=== PATIENT | female | born 1965 | race Caucasian/White ===

== ENCOUNTER → 2018-01-26 | Outpatient (CLI) | payer OTHER | END | disposition home or self-care (01) | LOC: C.PAPS 09:55 | PROVIDERS: ATTEND Obstetrics & Gynecology | DX: Z12.4 Encounter for screening for malignant neoplasm of cervix (principal) ==

== ENCOUNTER → 2018-01-26 | Outpatient (CLI) | payer OTHER | END | disposition home or self-care (01) | LOC: C.LABSPEC 17:26 | PROVIDERS: ATTEND Obstetrics & Gynecology | DX: B37.3 Candidiasis of vulva and vagina (principal) ==

== ENCOUNTER 2024-04-27 14:19 | Observation (INO) ==
--- NOTE | 2024-04-27 14:24 | ED Triage Note ---
Date of Service April 27, 2024 Provider in Triage Author: Earl Alvarado History of Present Illness This patient was briefly evaluated while in triage. An abbreviated physical exam was performed. This patient is a 58-year-old Female who presents to the ED for evaluation [facility]-was there for standing appointment for LEFT foot injury to RIGHT foot-stepped on a nail on the threshold of her floor Friday night skin injury, RIGHT foot pain, swelling, concern for infection Physical Exam GENERAL: Morbidly obese in wheelchair CARDIOVASCULAR: RRR RESPIRATORY: CTA EXT: unable to visualize RLE, dressed in triage. Initial orders for labs and / or imaging were placed and patient was placed in the waiting area until a bed is available. Please see further documentation for the full ED course.
[2024-04-27 15:19] LABS: Basophils # (auto) 0.04 K/uL (0.00-0.20); Basophils % (auto) 0.4 %; Eosinophils # (auto) 0.18 K/uL (0.00-0.50); Eosinophils % (auto) 1.7 %; Hematocrit (blood only) 45.5 % (37.0-47.0); Immature Granulocytes # (auto) 0.05 K/uL (0.01-0.20); Immature Granulocytes % (auto) 0.5 %; Lymphocytes # (auto) 1.22 K/uL (1.20-3.40); Lymphocytes % (auto) 11.2 %; Mean Corpuscular Hemoglobin 28.6 pg (25.0-34.0); Mean Corpuscular Volume 86.8 fL (80.0-100.0); Mean Platelet Volume 11.1 fL (9.4-12.4); Monocytes # (auto) 0.66 K/uL (0.11-0.59); Monocytes % (auto) 6.1 %; Neutrophils # (auto) 8.71 K/uL (1.40-6.50); Neutrophils % (auto) 80.1 %; Platelet Count 257 K/uL (130-400); RDW Coefficient of Variation 14.1 % (11.5-14.5); RDW Standard Deviation 45.1 fL (36.4-46.3); Red Blood Count 5.24 M/uL (4.20-5.40); White Blood Count 10.86 K/ul (4.8-10.8)
[2024-04-27 15:37] LABS: Alanine Aminotransferase 16 U/L (7-52); Albumin Level 3.5 gm/dl (3.4-5.0); Alkaline Phosphatase 88 U/L (34-104); Anion Gap 6 (3-11); Aspartate Aminotransferase 14 U/L (13-39); BUN Creatinine Ratio 11.5 (10-20); Bilirubin Direct 0.1 mg/dl (0-0.2); Bilirubin,Total 0.8 mg/dl (0.2-1.0); Blood Urea Nitrogen 12 mg/dl (6-23); Calcium 9.4 mg/dl (8.6-10.3); Carbon Dioxide 26 mmol/L (21-32); Chloride 103 mmol/L (98-107); Est GFR (African American) 69.1 ml/min; Est GFR (Non-African American) 59.6 ml/min; Glucose 171 mg/dl (70-99(Fasting)); Magnesium 1.5 mg/dl (1.7-2.4); Sodium 135 mmol/L (136-145)
[2024-04-27 15:52] LABS: Thyroid Stimulating Hormone 5.739 uIu/ml (0.300-4.500)
[2024-04-27] MEDS: OPTIRAY 320 125ml IV ONE (16:16)
[2024-04-27 16:27] LABS: T4 Free Thyroxine 1.04 ng/dl (0.61-1.60)
--- NOTE | 2024-04-27 16:49 | Emergency Department Note ---
Impression & Plan Cellulitis of foot, right, Diabetic foot infection, Hypomagnesemia ED Provider Note HISTORY OF PRESENT ILLNESS: Patient is a 58-year-old female presenting with right foot pain and swelling. Patient was seen at wound clinic and was referred to the emergency department due to concern for infection. Patient reports that 36 hours ago she was walking in her house when she accidentally stepped on the nail that tore off the skin on the plantar surface of her right lateral foot. Reports that she started Keflex which she had in her house from a previous history of cellulitis. She went to her doctors today and was found to have significant swelling and erythema and pain in her right foot and referred to the emergency department for further evaluation. Patient reports tetanus is up-to-date. Denies any fevers. Denies any nausea or vomiting. Denies any chest pain or shortness of breath. ROS: as above PHYSICAL EXAM: Constitutional: Patient appears in no acute distress. Morbidly obese HENT: Head: Normocephalic and atraumatic. Eyes: EOMI, PERRL Mouth/Throat: Mucous membranes moist. Neck: Trachea midline. Neck supple. Cardiovascular: Tachycardic with regular rhythm. No murmurs, rubs or gallops. Intact distal pulses. Pulmonary/Chest: No respiratory distress. Breath sounds clear and equal bilaterally. No wheezes or rales. Abdominal: Abdomen soft, no tenderness, rebound or guarding. Musculoskeletal: - RLE: Patient has an open wound to the right lateral plantar surface of the foot. It is oval in shape (7.8 cm x 6 cm) and does not have any appreciable drainage from the wound. Her entire right foot is red and swollen and hot to the touch. No palpable crepitus. Intact DP and PT pulses. Erythema is streaking up the ankle. Able to dorsiflex and plantarflex the ankle without significant pain. Skin: Warm and dry. No rash, erythema, pallor or cyanosis Psychiatric: Appropriate mood and affect for situation. Neurological: Alert and keenly responsive. CN II-XII grossly intact, moving all extremities equally and fully. MDM: - Vitals signs showed hypertension. - History obtained via patient. History as above. - Chronic conditions affecting care: DM-2; morbid obesity; hypothyroidism - Differential diagnoses include, but are not limited to: Necrotizing fasciitis; cellulitis; diabetic foot wound; soft tissue swelling - Order placed for continuous cardiac monitoring. At this time, monitor showed rate of 105 bpm with normal sinus rhythm, per my interpretation. - External medical records reviewed. Wound care visit note dated today was reviewed. Sent to ER for IV antibiotics. - Laboratory workup interpreted by myself showed leukocytosis (WBC 10.86) with left shift; slight hyponatremia (Na 135); hyperglycemia (glucose 171); hypomagnesemia (Mg 1.5); normal procalcitonin; normal lactate; elevated TSH (5.739) with normal T4 - CT right foot obtained via triage protocols showed diffuse subcutaneous edema and skin thickening representing cellulitis. No obvious osteomyelitis changes. - Patient given 50 mcg IV fentanyl for pain control. Given 1L NS and IV zosyn for antibiotic coverage. Given 1g IV magnesium for electrolyte replacement. - Discussion was had with binder caser about patient's case and need for admission - Hospitalist, Dr. Blanco, consulted for admission - Patient admitted to [facility] service for further evaluation and management. ASSESSMENT AND PLAN: Diagnosis: Diabetic foot infection; cellulitis of right foot; hypomagnesemia Plan: admit Past Med/Surg History Problem List (Updated 04/27/24 @ 19:33 by Johnna Cantrell MD) Hypomagnesemia (Acute) Diabetic foot infection (Acute) Cellulitis of foot, right (Acute) Infection of right foot Thickened endometrium Allergy to multiple antibiotics Diabetic ulcer of left heel (Acute) Open wound of heel Diabetic ulcer of left great toe (Acute) Hypothyroidism Morbid obesity with BMI of 60.0-69.9, adult Diabetic foot ulcer associated with type 2 diabetes mellitus Loss of protective sensation of skin of foot Foot deformity Obesity Diabetic peripheral neuropathy associated with type 2 diabetes mellitus Medical History History of blood transfusion Left midfoot ulcer Acquired hallux valgus of right foot Hallux valgus (acquired), left foot Bilateral swelling of feet Acquired claw toe of right foot Acquired claw toe of left foot Diabetes mellitus with diabetic polyneuropathy Callus Endometriosis CVA (cerebral vascular accident) Diabetes Surgical History History of dilatation and curettage S/P IVC filter H/O laparoscopy History of appendectomy Hx of tonsillectomy H/O tubal ligation H/O wisdom tooth extraction Family History Mother Stroke Von Willebrand disease Sister Von Willebrand disease Daughter Diabetes Autism Grandmother (Maternal) Breast cancer Grandmother (Paternal) Breast cancer Cervical cancer Social History Smoking Status: Never smoker Hx Alcohol Use: No Hx Substance Use: Yes Prescribed Medications: Marijuana Preferred Language: Mozambican Communication Ability: Effective Visual Impairment: No Limitations Hearing Ability: Normal Beliefs That Will Affect Care: None marital status: Current Living Situation: Family Feels Safe at Home: Yes Diet: regular Allergies Allergies Allergy/AdvReac Type Severity Reaction Status Date / Time adhesive tape Allergy Severe HIVES, Verified 04/27/24 11:06 SKIN PEELS OFF doxycycline Allergy Severe hives, Verified 04/27/24 11:06 nausea-vomiting erythromycin base Allergy Severe hives/sob Verified 04/27/24 11:06 Sulfa (Sulfonamide Allergy Severe hives/sob Verified 04/27/24 11:06 Antibiotics) acetaminophen Allergy Intermediate Hives Verified 04/27/24 11:06 [From Theraflu Multi-Symptom Cold] dextromethorphan Allergy Intermediate Hives Verified 04/27/24 11:06 [From Theraflu Multi-Symptom Cold] phenylephrine Allergy Intermediate Hives Verified 04/27/24 11:06 [From Theraflu Multi-Symptom Cold] celecoxib [From Celebrex] Allergy Mild Unknown Verified 04/27/24 11:06 clindamycin Allergy Mild Unknown Verified 04/27/24 11:06 Tetracyclines Allergy Mild Unknown Verified 04/27/24 11:06 Macrolide Antibiotics Allergy Unknown CAN'T Verified 04/27/24 11:06 REMEMBER ciprofloxacin [From Cipro] AdvReac Severe Gastrointestinal Verified 04/27/24 11:06 Upset/rash Home Meds Home Medications Medication Instructions Recorded Confirmed apixaban 5 mg tablet (Eliquis) 5 mg PO BID 10/29/19 04/27/24 insulin glargine 100 unit/mL 50 unit subcut QAM 04/09/22 04/27/24 subcutaneous solution (Lantus U-100 Insulin) dofetilide 500 mcg capsule 500 mcg PO BID 07/31/22 04/27/24 rosuvastatin 20 mg tablet 20 mg PO DAILY 07/31/22 04/27/24 spironolactone 25 mg tablet 25 mg PO DAILY 07/31/22 04/27/24 multivitamin 1 tab PO DAILY 12/10/22 04/27/24 insulin aspart U-100 100 unit/mL 40 - 60 unit subcut WM 12/09/23 04/27/24 subcutaneous solution levothyroxine 25 mcg capsule 100 mcg PO UD 12/09/23 04/27/24 cadexomer iodine 0.9 % topical gel 40 g topical DAILY 04/27/24 04/27/24 (Iodosorb) levothyroxine 75 mcg tablet 75 mcg PO UD 04/27/24 04/27/24 Previous Rx's Medication Instructions Recorded norethindrone acetate 5 mg tablet 5 mg PO BID #40 tabs 01/08/23 (Aygestin) Results & Data (ED) Vital Signs Vital Signs - 24 hr 04/27/24 14:22 04/27/24 15:27 04/27/24 15:27 Temperature 36.5 C Temperature Source Temporal Artery Scan Pulse Rate 90 Pulse Rate [Finger] 77 Respiratory Rate 18 20 Respiratory Effort / Characteristics Non-Labored Spontaneous Respiratory Depth Normal Respiratory Pattern Regular Blood Pressure 141/77 H Blood Pressure [Right Arm] Blood Pressure Mean 98 Blood Pressure Mean [Right Arm] Pulse Oximetry 95 97 Oxygen Delivery Method Room Air Room Air Sepsis Recent Fever Within 48 Hours No Sepsis New/Unexplained Change in Mental Status N/A Sepsis Action Taken by Nursing No Action Required 04/27/24 17:00 04/27/24 19:26 Temperature Temperature Source Pulse Rate 108 H Pulse Rate [Finger] 101 H Respiratory Rate 20 Respiratory Effort / Characteristics Respiratory Depth Respiratory Pattern Blood Pressure Blood Pressure [Right Arm] 115/85 Blood Pressure Mean Blood Pressure Mean [Right Arm] 95 Pulse Oximetry 94 Oxygen Delivery Method Room Air Sepsis Recent Fever Within 48 Hours Sepsis New/Unexplained Change in Mental Status Sepsis Action Taken by Nursing Laboratory Data 04/27/24 14:50 04/27/24 14:50 Lab Results 04/27/24 Range/Units 14:50 WBC 10.86 H (4.8-10.8) K/ul RBC 5.24 (4.20-5.40) M/uL Hgb 15.0 (12.0-16.0) g/dl Hct 45.5 (37.0-47.0) % MCV 86.8 (80.0-100.0) fL MCH 28.6 (25.0-34.0) pg MCHC 33.0 (32.0-36.0) g/dL RDW Std Deviation 45.1 (36.4-46.3) fL RDW Coeff of Benjamín 14.1 (11.5-14.5) % Plt Count 257 (130-400) K/uL MPV 11.1 (9.4-12.4) fL Immature Gran % (Auto) 0.5 % Neut % (Auto) 80.1 % Lymph % (Auto) 11.2 % [place] % (Auto) 6.1 % Eos % (Auto) 1.7 % Baso % (Auto) 0.4 % Neut # (Auto) 8.71 H (1.40-6.50) K/uL Lymph # (Auto) 1.22 (1.20-3.40) K/uL [place] # (Auto) 0.66 H (0.11-0.59) K/uL Eos # (Auto) 0.18 (0.00-0.50) K/uL Baso # (Auto) 0.04 (0.00-0.20) K/uL Immature Gran # (Auto) 0.05 (0.01-0.20) K/uL Sodium 135 L (136-145) mmol/L Potassium 4.0 (3.5-5.1) mmol/L Chloride 103 (98-107) mmol/L Carbon Dioxide 26 (21-32) mmol/L Anion Gap 6 (3-11) BUN 12 (6-23) mg/dl Creatinine 1.04 (0.6-1.2) mg/dl Est Cr Clr Drug Dosing Not Reportable Est GFR ( Amer) 69.1 ml/min Est GFR (Non-Af Amer) 59.6 ml/min BUN/Creatinine Ratio 11.5 (10-20) Glucose 171 H (70-99(Fasting)) mg/dl Lactate 1.9 (0.4-2.0) mmol/L Calcium 9.4 (8.6-10.3) mg/dl Magnesium 1.5 L (1.7-2.4) mg/dl Total Bilirubin 0.8 (0.2-1.0) mg/dl Direct Bilirubin 0.1 (0-0.2) mg/dl AST 14 (13-39) U/L ALT 16 (7-52) U/L Alkaline Phosphatase 88 (34-104) U/L Total Protein 7.0 (6.0-8.3) gm/dl Albumin 3.5 (3.4-5.0) gm/dl Procalcitonin < 0.02 (0-0.5) ng/ml TSH 5.739 H (0.300-4.500) uIu/ml Free T4 1.04 (0.61-1.60) ng/dl Administered Medications Discontinued Medications Fentanyl Citrate (Fentanyl Citrate Pf 100 Mcg/2 Ml Vial) 50 mcg IV NOW STA Stop: 04/27/24 17:07 Last Admin: 04/27/24 17:21 Dose: 50 mcg Documented By: REGINALD Piperacillin Sod/Tazobactam Sod (Zosyn) 4.5 gm in 100 mls @ 200 mls/hr IV NOW ONE Stop: 04/27/24 17:20 Last Infusion: 04/27/24 17:54 Dose: Infused Documented By: Admin: 04/27/24 17:21 Dose: 200 mls/hr Documented By: REGINALD Magnesium Sulfate/Dextrose (Magnesium Sulfate / D5w) 1 gm in 100 mls @ 100 mls/hr IV NOW STA Stop: 04/27/24 18:05 Last Infusion: 04/27/24 18:32 Dose: Infused Documented By: Admin: 04/27/24 17:21 Dose: 100 mls/hr Documented By: REGINALD Sodium Chloride (Nss) 1,000 mls @ 999 mls/hr IV .Q1H1M ONE Stop: 04/27/24 18:06 Last Infusion: 04/27/24 18:32 Dose: Infused Documented By: Admin: 04/27/24 17:19 Dose: 999 mls/hr Documented By: REGINALD Ioversol (Optiray 320 125ml) 120 ml IV ONCE ONE Stop: 04/27/24 16:17 Last Admin: 04/27/24 16:16 Dose: 120 ml Documented By: GAMA Imaging Data Radiologist's Impression: Foot CT 04/27/24 14:25 CT foot RT w con CT DOSE: 379.63 mGy.cm CLINICAL HISTORY: Right foot INFECTION/OSTEO TECHNIQUE: Multiaxial CT images of the right foot were performed without contrast and reformatted in the sagittal and coronal plane. A dose lowering technique was utilized adhering to the principles of ALARA. COMPARISON STUDY: None. FINDINGS: No fracture or dislocation within the right foot. No bony destructive changes to suggest an osteomyelitis. There is diffuse subcutaneous edema and skin thickening throughout the foot most pronounced within the dorsum of the foot. No definite loculated fluid collections on this noncontrast study to suggest an abscess. Vascular calcifications are noted. There is diffuse fatty atrophy of the right foot muscles. Diffuse thinning of the Achilles tendon is noted. IMPRESSION: 1. No bony destructive changes within the right foot to suggest an osteomyelitis. 2. Diffuse subcutaneous edema and skin thickening. This may represent a cellulitis. 3. No definite loculated fluid collections to suggest an abscess. ACT 112: Negative or not required by law. Electronically signed by: Thomas Estrada M.D. 04/27/2024 5:01 PM Discharge Plan Visit Data Chief Complaint: Referred by Doctor Stated Complaint: RIGHT FOOT INJURY, POSSIBLE INFECTION ED Provider: Johnna Cantrell Discharge Problem: Cellulitis of foot, right, Diabetic foot infection, Hypomagnesemia Forms Stand Alone Forms: [employer] Prescriptions Prescriptions: No Action levothyroxine 25 mcg capsule 100 mcg PO UD Rx Instructions: Per pt the pharmacy filled both 75 mcg and 100 mcg and she isn't sure which on she's supposed to take until she speaks with her doctor. So she's been alternating between them norethindrone acetate [Aygestin] 5 mg tablet 5 mg PO BID Qty: 40 0RF Rx Instructions: sometimes 3 times a day depending on how heavy period Eliquis 5 mg Tablet 5 mg PO BID Lantus U-100 Insulin 100 unit/mL solution 50 unit SUBCUT QAM rosuvastatin 20 mg tablet 20 mg PO DAILY dofetilide 500 mcg capsule 500 mcg PO BID spironolactone 25 mg tablet 25 mg PO DAILY insulin aspart U-100 100 unit/mL solution 40 - 60 unit subcut WM multivitamin Tablet 1 tab PO DAILY levothyroxine 75 mcg tablet 75 mcg PO UD Rx Instructions: Per pt the pharmacy filled both 75 mcg and 100 mcg and she isn't sure which on she's supposed to take until she speaks with her doctor. So she's been alternating between them Iodosorb 0.9 % gel 40 g topical DAILY Rx Instructions: apply in 1/8 to 1/4 inch thickness; change when saturated with exudate; remove before next application Referrals Referrals: Bayron Barrientos [Primary Care Provider] -
--- NOTE | 2024-04-27 17:02 | CT Scan Report ---
CT foot RT w con CT DOSE: 379.63 mGy.cm CLINICAL HISTORY: Right foot INFECTION/OSTEO TECHNIQUE: Multiaxial CT images of the right foot were performed without contrast and reformatted in the sagittal and coronal plane. A dose lowering technique was utilized adhering to the principles of ALARA. COMPARISON STUDY: None. FINDINGS: No fracture or dislocation within the right foot. No bony destructive changes to suggest an osteomyelitis. There is diffuse subcutaneous edema and skin thickening throughout the foot most pron ounced within the dorsum of the foot. No definite loculated fluid collections on this noncontrast [place] to suggest an abscess. Vascular calcifications are noted. There is diffuse fatty atrophy of the ri ght foot muscles. Diffuse thinning of the Achilles tendon is noted. IMPRESSION: 1. No bony destructive changes within the right foot to suggest an osteomyelitis. 2. Diffuse subcutaneous edema and skin thickening. This may represent a cellulitis. 3. No definite loculated fluid collections to suggest an abscess. ACT 112: Negative or not required by law. Electronically signed by: Thomas Estrada M.D. 04/27/2024 5:01 PM
[2024-04-27] MEDS: SODIUM CHLORIDE 0.9% 1,000 ML IV ONE (17:19)
[2024-04-27] MEDS: MAGNESIUM SULFATE / D5W 1 GM/100 ML BAG IV STA (17:21)
[2024-04-27] MEDS: PIPERACILLIN/TAZOBACTAM 4.5 GM/100 ML BAG IV ONE (17:21)
[2024-04-27] MEDS: fentaNYL citrate PF 100 MCG/2 ML VIAL IV STA (17:21)
--- NOTE | 2024-04-27 18:26 | History & Physical Report ---
Date of Service April 27, 2024 Assessment & Plan (1) Cellulitis of foot, right: (2) Diabetic ulcer of left great toe: (3) Hypothyroidism: (4) Morbid obesity with BMI of 60.0-69.9, adult: (5) Allergy to multiple antibiotics: Plan Patient is a 58 yo F w/ a PMHx of hypothyroidism, T2DM, diabetic neuropathy, diabetic ulcer of l. heel and l. toe, Class 3 morbid obesity, who presented to the [facility] ED with r. foot pain and swelling after stepping on a nail 36 hrs before admission. Was referred to the ED after being seen at the Wound Clinic. 1) Cellulitis of r. foot/ right foot wound/allergy to multiple antibiotics - Examination findings consistent w/ cellulitis: significant erythema, tenderness, stretched appearance of skin surrounding wound - CT-right foot: Diffuse subcutaneous edema and skin thickening consistent with a cellulitis. No findings suggestive of osteomyelitis or an abscess. - purulent, serous fluid drainage from wound - wound culture ordered and pending - wound care consult placed, appreciate recommendations - TD (tetanus/diphtheria vaccine) ordered - continued Zosyn, 4.5 g, IV, q8hrs and daptomycin, 525 mg, IV, q24hrs - held statin due to daptomycin (liver damage) - vancomycin relatively contraindicated due to obesity/dosing challenges; pt allergic to clindamycin and doxycycline 2) T2DM/ Diabetic ulcer of l. big toe - wound care consulted - long and short acting insulin ordered 3) Hypothyroidism - continue levothyroxine, 75 mcg, PO, daily 4) Atrial fibrillation - continue dofetalide, 500 mcg, PO, BID - continue apixaban, 5 mg, PO, BID 5) Endometriosis - continue norethindrone - continue spironolactone Code status: Full code Disposition: Med-Surg FENGI: T2DM, carb-consistent diet DVT Prophylaxis: continue Eliquis, 5 mg, PO, BID History of Present Illness Chief Complaint: r. foot lesion, cellulitis of right foot Primary Care Provider: Bayron Barrientos Patient is a 58 yo F w/ a PMHx of hypothyroidism, T2DM, diabetic neuropathy, diabetic ulcer of l. heel and l. toe, Class 3 morbid obesity, who presented to the [facility] ED with r. foot pain and swelling after stepping on a nail about 36 hrs before admission and subsequently referred to the ED after being seen at the Wound Clinic. Patient reported that 36 hours ago she was walking in her house when she accidentally stepped on a nail that tore off the skin on the plantar surface of her right lateral foot. Reported that she started Keflex which she had in her house from a previous history of cellulitis, patient took 5 doses in all. Upon arrival at wound clinic today, she was found to have significant swelling, erythema and pain in her right foot and referred to the emergency department for further evaluation. Patient reports last tetanus was in ~ 2017. Denied fevers and chills, denied nausea or vomiting, denied any chest pain or shortness of breath. Patient preferred a tetanus vaccination w/ tetanus toxoid only but agreed to the TD vaccination as this was closest vaccine available to the single tetanus vaccine. Allergies Allergy/AdvReac Type Severity Reaction Status Date / Time adhesive tape Allergy Severe HIVES, Verified 04/27/24 11:06 SKIN PEELS OFF doxycycline Allergy Severe hives, Verified 04/27/24 11:06 nausea-vomiting erythromycin base Allergy Severe hives/sob Verified 04/27/24 11:06 Sulfa (Sulfonamide Allergy Severe hives/sob Verified 04/27/24 11:06 Antibiotics) acetaminophen Allergy Intermediate Hives Verified 04/27/24 11:06 [From Theraflu Multi-Symptom Cold] dextromethorphan Allergy Intermediate Hives Verified 04/27/24 11:06 [From Theraflu Multi-Symptom Cold] phenylephrine Allergy Intermediate Hives Verified 04/27/24 11:06 [From Theraflu Multi-Symptom Cold] celecoxib [From Celebrex] Allergy Mild Unknown Verified 04/27/24 11:06 clindamycin Allergy Mild Unknown Verified 04/27/24 11:06 Tetracyclines Allergy Mild Unknown Verified 04/27/24 11:06 Macrolide Antibiotics Allergy Unknown CAN'T Verified 04/27/24 11:06 REMEMBER ciprofloxacin [From Cipro] AdvReac Severe Gastrointestinal Verified 04/27/24 11:06 Upset/rash Home Medications Medication Instructions Recorded Confirmed Type apixaban 5 mg tablet (Eliquis) 5 mg PO BID 10/29/19 04/27/24 History insulin glargine 100 unit/mL 50 unit subcut QAM 04/09/22 04/27/24 History subcutaneous solution (Lantus U-100 Insulin) dofetilide 500 mcg capsule 500 mcg PO BID 07/31/22 04/27/24 History rosuvastatin 20 mg tablet 20 mg PO DAILY 07/31/22 04/27/24 History spironolactone 25 mg tablet 25 mg PO DAILY 07/31/22 04/27/24 History multivitamin 1 tab PO DAILY 12/10/22 04/27/24 History norethindrone acetate 5 mg tablet 5 mg PO BID #40 tabs 01/08/23 04/27/24 Rx (Aygestin) insulin aspart U-100 100 unit/mL 40 - 60 unit subcut WM 12/09/23 04/27/24 History subcutaneous solution levothyroxine 25 mcg capsule 100 mcg PO UD 12/09/23 04/27/24 History cadexomer iodine 0.9 % topical gel 40 g topical DAILY 04/27/24 04/27/24 History (Iodosorb) levothyroxine 75 mcg tablet 75 mcg PO UD 04/27/24 04/27/24 History Past Med/Surg History Problem List (Updated 04/27/24 @ 19:33 by Johnna Cantrell MD) Hypomagnesemia (Acute) Diabetic foot infection (Acute) Cellulitis of foot, right (Acute) Infection of right foot Thickened endometrium Allergy to multiple antibiotics Diabetic ulcer of left heel (Acute) Open wound of heel Diabetic ulcer of left great toe (Acute) Hypothyroidism Morbid obesity with BMI of 60.0-69.9, adult Diabetic foot ulcer associated with type 2 diabetes mellitus Loss of protective sensation of skin of foot Foot deformity Obesity Diabetic peripheral neuropathy associated with type 2 diabetes mellitus Medical History History of blood transfusion Left midfoot ulcer Acquired hallux valgus of right foot Hallux valgus (acquired), left foot Bilateral swelling of feet Acquired claw toe of right foot Acquired claw toe of left foot Diabetes mellitus with diabetic polyneuropathy Callus Endometriosis CVA (cerebral vascular accident) Diabetes Surgical History History of dilatation and curettage S/P IVC filter H/O laparoscopy History of appendectomy Hx of tonsillectomy H/O tubal ligation H/O wisdom tooth extraction Family History Mother Stroke Von Willebrand disease Sister Von Willebrand disease Daughter Diabetes Autism Grandmother (Maternal) Breast cancer Grandmother (Paternal) Breast cancer Cervical cancer Social History Smoking Status: Never smoker Hx Alcohol Use: No Hx Substance Use: Yes Prescribed Medications: Marijuana Preferred Language: Lao Communication Ability: Effective Visual Impairment: No Limitations Hearing Ability: Normal Beliefs That Will Affect Care: None marital status: Current Living Situation: Family Feels Safe at Home: Yes Diet: regular Review of Systems Constitutional: no fever, no chills and no fatigue Respiratory: no cough, no chest congestion and no dyspnea Cardiovascular: no chest pain and no palpitations Gastrointestinal: no abdominal pain, no nausea, no vomiting, no constipation and no diarrhea/loose stools Genitourinary: no dysuria and no urinary frequency Integumentary: + skin ulcer (healing diabetic ulcer on l. big toe), + wounds (wound of plantar-lateral surface of right foot) and + skin swelling Physical Exam Constitutional: WD/WN, vitals as above Respiratory: normal respiratory effort, lungs clear to auscultation Cardiovascular: RRR, no murmur, no edema Extremities: + calf tenderness (mild calf tenderness b/l) and + pedal edema Gastrointestinal (Abdomen): normal bowel sounds, soft, nontender, no hepatosplenomegaly Skin: Trauma: + laceration (7x3 cm area of torn-away skin--mostly serous, slightly purulent lesion) erythema, tenderness extending 2 cm around all margins of wound, w/ more extensive erythema, tenderness into lower arch of foot Psychiatric: A+Ox3, euthymic affect Results & Data Results & Data Vital Signs (Past 12 Hours) Vital Signs Temp Pulse Pulse Resp BP BP Pulse Ox 04/27/24 17:00 101 H 20 115/85 94 04/27/24 15:27 97 04/27/24 15:27 77 20 04/27/24 14:22 36.5 C 90 18 141/77 H 95 O2 Del Method 04/27/24 17:00 Room Air 04/27/24 15:27 Room Air 04/27/24 15:27 04/27/24 14:22 Room Air Diagnostic Findings Foot CT 04/27/24 14:25 CT foot RT w con CT DOSE: 379.63 mGy.cm CLINICAL HISTORY: Right foot INFECTION/OSTEO TECHNIQUE: Multiaxial CT images of the right foot were performed without contrast and reformatted in the sagittal and coronal plane. A dose lowering technique was utilized adhering to the principles of ALARA. COMPARISON STUDY: None. FINDINGS: No fracture or dislocation within the right foot. No bony destructive changes to suggest an osteomyelitis. There is diffuse subcutaneous edema and skin thickening throughout the foot most pronounced within the dorsum of the foot. No definite loculated fluid collections on this noncontrast study to suggest an abscess. Vascular calcifications are noted. There is diffuse fatty atrophy of the right foot muscles. Diffuse thinning of the Achilles tendon is noted. IMPRESSION: 1. No bony destructive changes within the right foot to suggest an osteomyelitis. 2. Diffuse subcutaneous edema and skin thickening. This may represent a cellulitis. 3. No definite loculated fluid collections to suggest an abscess. ACT 112: Negative or not required by law. Electronically signed by: Thomas Estrada M.D. 04/27/2024 5:01 PM Supervising Physician Co-Signing Physician Notes Patient seen and examined, chart reviewed, case discussed with Dr. Vasquez and I agree with the assessment and plan as above except as otherwise noted Labs and images reviewed Pt is a 58yo F with a past med hx of type 2 diabetes mellitus, diabetic neuropathy, diabetic ulcer of the heel, morbid obesity who stepped on a nail approximately 36 hours before being seen at wound clinic and subsequently referred to the ER. Right foot has had progressive pain/swelling since injury. Patient had Keflex for prior infection of which she took about 5 doses in total. Also for LEFT hallux diabetic ulcer with wound care. Thinks last TDAP somewhere around 2016. Declines TDAP but is willing to get tetanus. 2cm surrounding demarcated erythema which extents up the proximal foot. Initially reported a puncture wound, clarifies that she scraped the foot against the foot. CT does not show evidence of osteomyelitis, diffuse subcu edema and skin thickening is present consistent with cellulitis. No abscess is seen, however performed as noncontrast. She has a leukocytosis of 10 with neutrophilic predominance but no left shift. Hypomagnesemic, repleted. Lactate was normal. Wound culture was taken and sent. Continue on Zosyn/daptomycin at this time. erythema borders marked at time of visit. R plantar large open wound draining serous and some scant purulent material is present. ype 2 diabetes mellitus on glargine 50 units and aspart 40-60 units. Will continue glargine 50 units and convert to carb ratio/correction factor based on basal insulin. Type II DM diet. Rosuvastatin held while on daptomycin. Discussed tetanus vaccination extensively with patient. Given extensive injury with oracio nail exposure and last tetanus was many years ago recommended booster. Have Tdap and Td available, patient prefers to avoid the pertussis. Consents to Td booster on shared decision making, ordered. She takes her Synthroid inconsistently. Has both a 75 mcg and 100 mcg pres cription at home, she reports she does not take either 1 reliably and switches between the 2. Long discussion about long half-life of Synthroid and that she needs to take a stable dose so that her levels can be adjusted and checked on 6- week intervals, and that her TSH may be off in the setting of acute illness. As her TSH is slightly high while this may be artificially elevated in the setting of illness, will continue the 75 mcg dose daily at this time and patient will try to take this consistently with adjustments to be made at the direction of her doctor as outpatient moving forward. Does have history of A-fib and tachycardia. She takes Tikosyn which she has with her. She did self administer a dose at approximately 8 PM. This is sent to the pharmacy for verification, and administration as we do not have this on formulary
--- NOTE | 2024-04-27 19:54 | Billing Data ---
Date of Service April 27, 2024 Coding Level of Care Code 71635 INT INP/OBS CARE
[2024-04-27] MEDS ORDERED: GLUCOSE 40% GEL 15 GM TUBE PO PRN ×2 (19:59→22:06)
[2024-04-27] MEDS ORDERED: DEXTROSE 50% 50 ML SYRINGE IV PRN ×2 (19:59→22:06)
[2024-04-27] MEDS ORDERED: CARBOHYDRATES FOR HYPOGLYCEMIA PO PRN ×2 (19:59→22:06)
[2024-04-27] MEDS ORDERED: GLUCAGON FOR INJ 1 MG VIAL SQ PRN ×2 (19:59→22:06)
[2024-04-27] MEDS ORDERED: GLUCOSE 10 TAB/TUBE PO PRN ×2 (19:59→22:06)
[2024-04-27] MEDS: oxyCODONE HCL IR 5 MG TAB (IMMEDIATE RELEASE) PO PRN (21:00)
[2024-04-27] MEDS: DIPHTHERIA/TETANUS TOX ADSORB VACCINE (Td) 0.5 ML SYR/VIAL IM ONE (21:00)
[2024-04-27] MEDS ORDERED: MELATONIN 3 MG TAB PO PRN (22:06)
[2024-04-27] MEDS: INSULIN ASPART PER UNIT CHARGE SC SCH (22:08)
[2024-04-27] MEDS: MAGNESIUM OXIDE 400 MG TAB PO SCH (22:46)
[2024-04-27] MEDS: DAPTOmycin 525 MG in SYRINGE 0 ML IV SCH (22:47)
[2024-04-27] MEDS: APIXABAN 5 MG TABLET PO SCH (22:47)
[2024-04-27] MEDS: NORETHINDRONE 5 MG TAB PO SCH (22:47)
[2024-04-27] MEDS: PIPERACILLIN/TAZOBACTAM 4.5 GM in DEXTROSE 5% MINI-B 100 ML IV SCH (22:50)
--- NOTE | 2024-04-28 01:36 | Communication Note ---
Date of Service: April 28, 2024 Called to floor by nursing as patient was found to be taking her home medications in addition to mediations ordered inpatient w/o nursing supervision. It was explained to patient that this creates an unsafe situation for the patient herself, nursing, and physician staff as we are unable to mitigate medication interactions and side effects if we are unaware of what she is taking. Multiple attempts were made to offer to have patient's medications confirmed by pharmacy, but she remained steadfast that she was not going to allow her medications to leave her sight. It was eventually mutually agreed upon to have the patient's medications taken to the pharmacy by her daughter (while escorted by security and OUTLET MANAGER) so that pharmacy can verify the home medications and provide labels for nursing to scan. The medications will subsequently be kept locked within the medication cabinet within the patient's room. This way patient is able to take her own medications, which is important to her, but the medications are kept supervised in a safe place to avoid potential life threatening medication interactions. Nursing and physician in agreement with plan. [facility] policy reviewed, current plan meets policy standards. Resident Activity Tracking Resident Involvement: Resident Care Provided Care Provided: Adult Hospital Medicine
[2024-04-28] MEDS: LEVOTHYROXINE SODIUM 75 MCG TABLET PO SCH (05:50)
--- NOTE | 2024-04-28 07:33 | Hospitalist Progress Note ---
Date of Service April 28, 2024 Assessment & Plan (1) Cellulitis of foot, right: (2) Diabetic ulcer of left great toe: (3) Hypothyroidism: (4) Morbid obesity with BMI of 60.0-69.9, adult: (5) Allergy to multiple antibiotics: Plan Patient is a 58 yo F w/ a PMHx of hypothyroidism, T2DM, diabetic neuropathy, diabetic ulcer of l. heel and l. toe, Class 3 morbid obesity, who presented to the [facility] ED with r. foot pain and swelling after stepping on a nail 36 hrs before admission. Was referred to the ED after being seen at the Wound Clinic. 1) Cellulitis/wound of r. foot/ allergy to multiple antibiotics - Examination findings consistent w/ cellulitis: significant erythema, tenderness, stretched appearance of skin surrounding wound - CT-right foot: Diffuse subcutaneous edema and skin thickening consistent with a cellulitis. No findings suggestive of osteomyelitis or an abscess. - Wound culture in process: preliminary growing Staphylococcus species - Wound care consult placed, appreciate recommendations - Tdap offered to patient - Decline to do pertussis. TD not in formulary - IV Zosyn, 4.5 g, IV, q8hrs and daptomycin, 525 mg, IV, q24hrs - Held statin due to daptomycin (liver damage) - vancomycin relatively contraindicated due to obesity/dosing challenges; pt allergic to clindamycin and doxycycline 2) T2DM/ Diabetic ulcer of l. big toe - wound care consulted - long and short acting insulin ordered 3) Hypothyroidism - continue levothyroxine, 75 mcg, PO, daily 4) Atrial fibrillation - continue dofetalide, 500 mcg, PO, BID - continue apixaban, 5 mg, PO, BID 5) Endometriosis - continue norethindrone - continue spironolactone Code status: Full code Disposition: Med-Surg FENGI: T2DM, carb-consistent diet DVT Prophylaxis: continue Eliquis, 5 mg, PO, BID Admission and Anticipated Discharge Date Admission Date: April 27, 2024 Subjective Patient seen this morning found awake in no acute distress. Daughter at bedside. Refers some mild pain. Denied any fevers chills or any other symptoms. Patient was upset this morning about treatment plan, all questions has been answered and plan explained. Wound culture growing staphylococcus. currently patient is receiving IV Zosyn and Daptomycin. Wound care ordered. Physical Exam Constitutional: WD/WN, vitals as above Respiratory: normal respiratory effort, lungs clear to auscultation Cardiovascular: RRR, no murmur, no edema Extremities: + calf tenderness (mild calf tenderness b/l) and + pedal edema Gastrointestinal (Abdomen): normal bowel sounds, soft, nontender, no hepat osplenomegaly Skin: Trauma: + laceration (7x3 cm area of torn-away skin--mostly serous, slightly purulent lesion) erythema, tenderness extending 2 cm around all margins of wound, w/ more extensive erythema, tenderness into lower arch of foot Psychiatric: A+Ox3, euthymic affect Results & Data Results & Data Vital Signs (Past 12 Hours) Vital Signs Temp Pulse Resp BP Pulse Ox O2 Del Method 04/27/24 21:30 36.8 C 124 H 20 154/87 H 95 Room Air 04/27/24 21:00 98 H 22 132/87 97 Room Air Resident Activity Tracking Resident Involvement: Resident Care Provided Care Provided: Adult Hospital Medicine
[2024-04-28 08:03] LABS: Basophils # (auto) 0.04 K/uL (0.00-0.20); Basophils % (auto) 0.7 %; Eosinophils # (auto) 0.17 K/uL (0.00-0.50); Hematocrit (blood only) 43.6 % (37.0-47.0); Hemoglobin 14.3 g/dl (12.0-16.0); Immature Granulocytes # (auto) 0.01 K/uL (0.01-0.20); Immature Granulocytes % (auto) 0.2 %; Lymphocytes % (auto) 21.2 %; Mean Corpuscular Hemoglobin 29.2 pg (25.0-34.0); Mean Corpuscular Hgb Conc 32.8 g/dL (32.0-36.0); Mean Platelet Volume 11.3 fL (9.4-12.4); Monocytes # (auto) 0.46 K/uL (0.11-0.59); Monocytes % (auto) 8.1 %; Neutrophils # (auto) 3.78 K/uL (1.40-6.50); Neutrophils % (auto) 66.8 %; Platelet Count 247 K/uL (130-400); RDW Coefficient of Variation 14.4 % (11.5-14.5); RDW Standard Deviation 46.5 fL (36.4-46.3); White Blood Count 5.66 K/ul (4.8-10.8)
[2024-04-28] MEDS: MULTIVITAMIN TAB PO SCH (08:23)
[2024-04-28] MEDS: SPIRONOLACTONE 25 MG TAB PO SCH (08:24)
[2024-04-28] MEDS: DOFETILIDE 125 MCG CAPSULE PO SCH (08:26)
[2024-04-28] MEDS: LANTUS PER UNIT CHARGE SQ SCH (08:32)
[2024-04-28] MEDS ORDERED: DOFETILIDE 125 MCG CAPSULE PO SCH (09:00)
[2024-04-28] MEDS ORDERED: ACETAMINOPHEN 325 MG TAB PO PRN (09:17)
[2024-04-28] MEDS ORDERED: Nursing to Pharmacy Communication SCH (10:30)
--- NOTE | 2024-04-28 16:42 | Discharge Summary ---
Date of Service April 28, 2024 Admission HPI Per Admitting Provider Patient is a 58 yo F w/ a PMHx of hypothyroidism, T2DM, diabetic neuropathy, diabetic ulcer of l. heel and l. toe, Class 3 morbid obesity, who presented to the [facility] ED with r. foot pain and swelling after stepping on a nail about 36 hrs before admission and subsequently referred to the ED after being seen at the Wound Clinic. Patient reported that 36 hours ago she was walking in her house when she accidentally stepped on a nail that tore off the skin on the plantar surface of her right lateral foot. Reported that she started Keflex which she had in her house from a previous history of cellulitis, patient took 5 doses in all. Upon arrival at wound clinic today, she was found to have significant swelling, erythema and pain in her right foot and referred to the emergency department for further evaluation. Patient reports last tetanus was in ~ 2017. Denied fevers and chills, denied nausea or vomiting, denied any chest pain or shortness of breath. Patient preferred a tetanus vaccination w/ tetanus toxoid only but agreed to the TD vaccination as this was closest vaccine available to the single tetanus vaccine. Discharge Data Allergies Allergy/AdvReac Type Severity Reaction Status Date / Time adhesive tape Allergy Severe HIVES, Verified 04/27/24 11:06 SKIN PEELS OFF doxycycline Allergy Severe hives, Verified 04/27/24 11:06 nausea-vomiting erythromycin base Allergy Severe hives/sob Verified 04/27/24 11:06 Sulfa (Sulfonamide Allergy Severe hives/sob Verified 04/27/24 11:06 Antibiotics) acetaminophen Allergy Intermediate Hives Verified 04/27/24 11:06 [From Theraflu Multi-Symptom Cold] dextromethorphan Allergy Intermediate Hives Verified 04/27/24 11:06 [From Theraflu Multi-Symptom Cold] phenylephrine Allergy Intermediate Hives Verified 04/27/24 11:06 [From Theraflu Multi-Symptom Cold] celecoxib [From Celebrex] Allergy Mild Unknown Verified 04/27/24 11:06 clindamycin Allergy Mild Unknown Verified 04/27/24 11:06 Tetracyclines Allergy Mild Unknown Verified 04/27/24 11:06 Macrolide Antibiotics Allergy Unknown CAN'T Verified 04/27/24 11:06 REMEMBER ciprofloxacin [From Cipro] AdvReac Severe Gastrointestinal Verified 04/27/24 11:06 Upset/rash Consultations 04/27/24 18:01 ED Decision to Admit Stat 04/28/24 16:08 Consult Infectious Diseases Stat Ordered Studies 04/27/24 14:25 CT foot RT w con Stat Hospital Course (1) Cellulitis of foot, right: (2) Diabetic ulcer of left great toe: (3) Hypothyroidism: (4) Morbid obesity with BMI of 60.0-69.9, adult: (5) Allergy to multiple antibiotics: Plan Patient is a 58 yo F w/ a PMHx of hypothyroidism, T2DM, diabetic neuropathy, diabetic ulcer of l. heel and l. toe, Class 3 morbid obesity, who presented to the [facility] ED with r. foot pain and swelling after stepping on a nail 36 hrs before admission. Was referred to the ED after being seen at the Wound Clinic. 1) Cellulitis/wound of r. foot/ allergy to multiple antibiotics - Examination findings consistent w/ cellulitis: significant erythema, tenderness, stretched appearance of skin surrounding wound - CT-right foot: Diffuse subcutaneous edema and skin thickening consistent with a cellulitis. No findings suggestive of osteomyelitis or an abscess. - Wound culture in process: preliminary growing Staphylococcus species - Wound care consult placed, appreciate recommendations - Tdap offered to patient - Decline to do pertussis. TD not in formulary - IV Zosyn, 4.5 g, IV, q8hrs and daptomycin, 525 mg, IV, q24hrs - Held statin due to daptomycin (liver damage) - vancomycin relatively contraindicated due to obesity/dosing challenges; pt allergic to clindamycin and doxycycline 2) T2DM/ Diabetic ulcer of l. big toe - wound care consulted - long and short acting insulin ordered 3) Hypothyroidism - continue levothyroxine, 75 mcg, PO, daily 4) Atrial fibrillation - continue dofetalide, 500 mcg, PO, BID - continue apixaban, 5 mg, PO, BID 5) Endometriosis - continue norethindrone - continue spironolactone Code status: Full code Disposition: Med-Surg FENGI: T2DM, carb-consistent diet DVT Prophylaxis: continue Eliquis, 5 mg, PO, BID Discharge Plan Discharge Items Patient Disposition: Home - Self-Care Reason For Visit: WOUND ON PLANTAR-LATERAL SURFACE OF R FOOT Discharge Diagnosis: Diabetic wound Follow-up/Referrals: Bayron Barrientos [Primary Care Provider] - Stand-Alone Forms: Blue Bus Tees, Smoking Cessation Medications and DC Order Prescriptions: New linezolid 600 mg tablet 600 mg PO BID 10 Days Qty: 20 0RF Continued levothyroxine 25 mcg capsule 100 mcg PO UD Rx Instructions: Per pt the pharmacy filled both 75 mcg and 100 mcg and she isn't sure which on she's supposed to take until she speaks with her doctor. So she's been alternating between them norethindrone acetate [Aygestin] 5 mg tablet 5 mg PO BID Qty: 40 0RF Rx Instructions: sometimes 3 times a day depending on how heavy period Eliquis 5 mg Tablet 5 mg PO BID Lantus U-100 Insulin 100 unit/mL solution 50 unit SUBCUT QAM rosuvastatin 20 mg tablet 20 mg PO DAILY dofetilide 500 mcg capsule 500 mcg PO BID spironolactone 25 mg tablet 25 mg PO DAILY insulin aspart U-100 100 unit/mL solution 40 - 60 unit subcut WM multivitamin Tablet 1 tab PO DAILY levothyroxine 75 mcg tablet 75 mcg PO UD Rx Instructions: Per pt the pharmacy filled both 75 mcg and 100 mcg and she isn't sure which o n she's supposed to take until she speaks with her doctor. So she's been alternating between them Iodosorb 0.9 % gel 40 g topical DAILY Rx Instructions: apply in 1/8 to 1/4 inch thickness; change when saturated with exudate; remove before next application Admission Data Admit Date/Time: 04/27/24 19:58 Attending Provider: Tacos Brizuela Admit Provider: Tacos Vasquez Primary Care Provider: Bayron Barrientos Other Providers: Chris Blanco; Suzanne Berrios; Merary Alvarez; Alaina Davila; Rima Mcintyre; Corrina Martinez; Paula Lal
--- NOTE | 2024-04-28 17:12 | Discharge Summary ---
Date of Service April 28, 2024 Admission HPI Per Admitting Provider Patient is a 58 yo F w/ a PMHx of hypothyroidism, T2DM, diabetic neuropathy, diabetic ulcer of l. heel and l. toe, Class 3 morbid obesity, who presented to the [facility] ED with r. foot pain and swelling after stepping on a nail about 36 hrs before admission and subsequently referred to the ED after being seen at the [facility]. Patient reported that 36 hours ago she was walking in her house when she accidentally stepped on a nail that tore off the skin on the plantar surface of her right lateral foot. Reported that she started Keflex which she had in her house from a previous history of cellulitis, patient took 5 doses in all. Upon arrival at wound clinic today, she was found to have significant swelling, erythema and pain in her right foot and referred to the emergency department for further evaluation. Patient reports last tetanus was in ~ 2016. Denied fevers and chills, denied nausea or vomiting, denied any chest pain or shortness of breath. Patient preferred a tetanus vaccination w/ tetanus toxoid only but agreed to the TD vaccination as this was closest vaccine available to the single tetanus vaccine. Admission Exam Per Admitting Provider Constitutional: WD/WN, vitals as above Respiratory: normal respiratory effort, lungs clear to auscultation Cardiovascular: RRR, no murmur, no edema Extremities: + calf tenderness (mild calf tenderness b/l) and + pedal edema Gastrointestinal (Abdomen): normal bowel sounds, soft, nontender, no hepatosplenomegaly Skin: Trauma: + laceration (7x3 cm area of torn-away skin--mostly serous, slightly purulent lesion) erythema, tenderness extending 2 cm around all margins of wound, w/ more extensive erythema, tenderness into lower arch of foot Psychiatric: A+Ox3, euthymic affect Principal Diagnosis Diabetic wound Diabetic Cellulitis Discharge Exam Constitutional WD/WN, vitals as above + obese ENMT external ear and nose normal, oropharynx normal Respiratory normal respiratory effort, lungs clear to auscultation Cardiovascular RRR, no murmur, no edema Gastrointestinal (Abdomen) normal bowel sounds, soft, nontender, no hepatosplenomegaly Skin Right feet + laceration with torn-away skin. Erythema surrounding, warm) Left feet: toe with open wound Discharge Data Allergies Allergy/AdvReac Type Severity Reaction Status Date / Time adhesive tape Allergy Severe HIVES, Verified 04/27/24 11:06 SKIN PEELS OFF doxycycline Allergy Severe hives, Verified 04/27/24 11:06 nausea-vomiting erythromycin base Allergy Severe hives/sob Verified 04/27/24 11:06 Sulfa (Sulfonamide Allergy Severe hives/sob Verified 04/27/24 11:06 Antibiotics) acetaminophen Allergy Intermediate Hives Verified 04/27/24 11:06 [From Theraflu Multi-Symptom Cold] dextromethorphan Allergy Intermediate Hives Verified 04/27/24 11:06 [From Theraflu Multi-Symptom Cold] phenylephrine Allergy Intermediate Hives Verified 04/27/24 11:06 [From Theraflu Multi-Symptom Cold] celecoxib [From Celebrex] Allergy Mild Unknown Verified 04/27/24 11:06 clindamycin Allergy Mild Unknown Verified 04/27/24 11:06 Tetracyclines Allergy Mild Unknown Verified 04/27/24 11:06 Macrolide Antibiotics Allergy Unknown CAN'T Verified 04/27/24 11:06 REMEMBER ciprofloxacin [From Cipro] AdvReac Severe Gastrointestinal Verified 04/27/24 11:06 Upset/rash Consultations 04/27/24 18:01 ED Decision to Admit Stat 04/28/24 16:08 Consult Infectious Diseases Stat Ordered Studies 04/27/24 14:25 CT foot RT w con Stat Hospital Course (1) Cellulitis of foot, right: (2) Diabetic ulcer of left great toe: (3) Hypothyroidism: (4) Morbid obesity with BMI of 60.0-69.9, adult: (5) Allergy to multiple antibiotics: Plan 58 y/o female with a PMHx of hypothyroidism, a fib on Eliquis and dofetilide, and T2DM c/b diabetic neuropathy and diabetic ulcers presented with right foot cellulitis after injury with nail found to have a staphylococcus infection. Patient unable to stay hospitalized for sensitivities/speciation results. Discharged on 10 days of linezolid with strict return precautions. #Staphylococcus Cellulitis #Multiple Allergies to Antibiotics Exam consistent with cellulitis. CT without suspicion of osteomyelitis or ab scess. Started on zosyn/dapto for MRSA/monas coverage. WCx with prelim - staph. No speciation/sensitivities available at time of discharge. Would recommend continued inpatient stay for IV abx until culture data results. Discussed case with ID. Best oral coverage for unspeciated staph would be linezolid. Patient not on SSRI therapy - less likely to cause serotonin syndrome. Patient declined Tdap as she would prefer TD, which is not available at [facility]. Would recommend TD outpatient. Strict return precautions given. Recommend patient follow up shortly with outpatient PCP and wound clinic. #T2DM, diabetic neuropathy, diabetic ulcer Blood sugar control likely suboptimal with sugars 120-180s during hospital stay. Would recommend outpatient monitoring with HbA1c and adjustment of regimen as needed. SSI while inpatient. Resume home regimen upon discharge. #Hypothyroidism continue levothyroxine, 75 mcg, PO, daily #Atrial fibrillation Rate controlled with dofetilide 500 mg BID. Anticoagulated with Eliquis 5 mg BID #Endometriosis - continue norethindrone - continue spironolactone Total Time Total Time Spent Total Time Spent (In Minutes): See attending attestation Discharge Plan Discharge Items Patient Disposition: Home - Self-Care Reason For Visit: WOUND ON PLANTAR-LATERAL SURFACE OF R FOOT Discharge Diagnosis: Diabetic wound Activity: Per Instructions section Non-emergency contact: Primary Care Provider Call non-emergency contact if: you have any medication questions, your pain is worsening and your temperature is above 101 Follow-up/Referrals: Bayron Barrientos [Primary Care Provider] - Diet: Carb Consistent or DM2 Addtl Attending Provider Instructions: You were seen here in the hospital for cellulitis after stepping on a nail. We treated you with IV antibiotics. Your preliminary wound culture grew staphylococcus. Ideally patient would stay inpatient for IV antibiotics. With shared decision making we decided to send you home on a broad spectrum oral antibiotic. If symptoms worsen - increased redness, smelly/thick discharge, increased warmth, or persistent fevers after 48 hours of antibiotics I would strongly recommend return to the ED. I would recommend follow up with your primary care doctor in the next 4-5 days. If you do not hear from them, I would give them a call. Would also recommend follow up with the wound clinic. We are sending a medication called Linezolid to your pharmacy. You will take one 600 mg tablet every 12 hours for the next 10 days. We have given you the first dose here. Next dose will be in the morning of 04/29. Pending Studies at Discharge: Yes Studies:: blood and wound cultures Stand-Alone Forms: My [facility] [employer], Smoking Cessation Medications and DC Order Prescriptions: New linezolid 600 mg tablet 600 mg PO BID 10 Days Qty: 20 0RF Continued levothyroxine 25 mcg capsule 100 mcg PO UD Rx Instructions: Per pt the pharmacy filled both 75 mcg and 100 mcg and she isn't sure which on she's supposed to take until she speaks with her doctor. So she's been alternating between them norethindrone acetate [Aygestin] 5 mg tablet 5 mg PO BID Qty: 40 0RF Rx Instructions: sometimes 3 times a day depending on how heavy period Eliquis 5 mg Tablet 5 mg PO BID Lantus U-100 Insulin 100 unit/mL solution 50 unit SUBCUT QAM rosuvastatin 20 mg tablet 20 mg PO DAILY dofetilide 500 mcg capsule 500 mcg PO BID spironolactone 25 mg tablet 25 mg PO DAILY insulin aspart U-100 100 unit/mL solution 40 - 60 unit subcut WM multivitamin Tablet 1 tab PO DAILY levothyroxine 75 mcg tablet 75 mcg PO UD Rx Instructions: Per pt the pharmacy filled both 75 mcg and 100 mcg and she isn't sure which on she's supposed to take until she speaks with her doctor. So she's been alternating between them Iodosorb 0.9 % gel 40 g topical DAILY Rx Instructions: apply in 1/8 to 1/4 inch thickness; change when saturated with exudate; remove before next application Discharge Orders: Discharge Order (Routine); Ordered 04/28/24 Ordered By: Breanna Bales Admission Data Admit Date/Time: 04/27/24 19:58 Attending Provider: Tacos Brizuela Admit Provider: Tacos Vasquez Primary Care Provider: Bayron Barrientos Other Providers: Chris Blanco; Suzanne Berrios; Merary Alvarez; Alaina Davila; Rima Rivas; Corrina Martinez; Paula Lal Supervising Physician Co-Signing Physician Notes Attending attestation Pt seen and examined in concert with Dr. Ascencio. In agreement with the documented findings as noted in the resident documentation with any exceptions or additions as noted here. Resting in bed with complaint of mild discomfort of the right lower extremity consistent with wound. Reports no fever, chills, sensation changes. On examination, S1/S2 nl RRR no MCG. CTAB. Abd NT/ND BS+ve. Wound of the RLE bandaged from ED evaluation. LLE great toe distal wound with visible purulent drainage. Right lower extremity avulsion injury 2/2 nail w/ chronic LLE injury - patient leaving tonight 2/2 no childcare for ASD child at home and needs ongoing care. Aware of risks with plan of care after detailed discussion. ID consult urgent in evening / significant allergy history and dofetilde as well as need for PO medication for discharge. Will do oral linezolid course and follow up culture and encourage close follow up with wound care and primary care provider. Else see resident documentation as noted. Total attending physician time spent with this patient's care on the day of discharge: 60 minutes. Resident Activity Tracking Resident Involvement: Resident Care Provided Care Provided: Adult Hospital Medicine
[2024-04-28] MEDS: LINEZOLID 600 MG TAB PO ONE (17:15)
[2024-04-28] MEDS ORDERED: APIXABAN 5 MG TABLET PO SCH (19:30)
[2024-04-28] MEDS ORDERED: NORETHINDRONE 5 MG TAB PO SCH (19:30)
[2024-04-29] MEDS ORDERED: SPIRONOLACTONE 25 MG TAB PO SCH (07:30)
== END 2024-04-28 19:51 | disposition home or self-care (01) | DRG 638 ==
LOC: ED 14:19 → INTOOBSV 19:58 → SUATTDRO 19:58 → 3W 19:58